=== PATIENT | male | born 1995 | race African-American/Black ===

== ENCOUNTER 2020-05-03 11:36 | Emergency (ER) | payer MEDICAID, SELFPAY ==
--- NOTE | 2020-05-03 11:42 | ED.GENADULT ---
HPI - General Adult General Chief complaint: Extremity Injury, Lower Stated complaint: R LEG PAIN Time Seen by Provider: 05/03/20 11:42 Source: patient Mode of arrival: ambulatory Limitations: no limitations History of Present Illness HPI narrative: 25-year-old male patient presents to the [facility] with complaints of right hip and right leg pain that radiates down to the foot causing some numbness to the foot. Patient states he started having the right leg pain about 2 to 3 weeks ago but denies any specific injury. Patient states he has been working out recently and has been running. Patient states about a week ago he went to the emergency department to be evaluated and states that they did x-ray him at that time and everything was negative. They prescribed him some naproxen and discharged him home. Patient states that the naproxen had been helping with his symptoms and his pain. Patient states he went running this past and the pain came back and the naproxen did not help. Patient states Monday the pain continued to go down the leg and now causing some numbness to the right foot at times. Patient states that the pain is worse when he is up walking around however it does get better when he is laying down or sitting. Denies any loss of bowel or bladder control. Patient states he is continue to take the naproxen. Patient states he has been doing some stretching but continues to workout. Patient denies any heat or warm baths. Related Data Home Medications Medication Instructions Recorded Confirmed naproxen 500 mg PO BID 05/03/20 05/03/20 Allergies Allergy/AdvReac Type Severity Reaction Status Date / Time No Known Allergies Allergy Verified 05/03/20 11:57 Review of Systems Review of Systems: Narrative: CONSTITUTIONAL: Denies fever, chills, or sweats. EYES: Denies visual changes, redness, or discharge. ENT: Denies rhinorrhea, congestion, sore throat, or otalgia. CARDIOVASCULAR: Denies chest pain, palpitations, or edema. RESPIRATORY: Denies cough or dyspnea. GASTROINTESTINAL: Denies abdominal pain, nausea, vomiting, or diarrhea. GENITOURINARY: Denies dysuria or hematuria. SKIN: Denies rash or itching. MUSCULOSKELETAL: Denies back pain, joint pain, or myalgia. Positive right hip and right leg pain NEUROLOGIC: Denies headache, numbness, or weakness. PSYCHIATRIC: Denies anxiety or depression. PMFSH Comments At the time of my signature I agree with nursing past medical history, surgical, social, and family history. There is no relevant family history pertinent to the presenting complaint. Exam Narrative: Exam Narrative: GENERAL: Well-appearing, well-nourished, and in no acute distress. HEAD: Normocephalic, atraumatic. EYES: PERRLA and EOMI. ENT: Nares clear, no rhinorrhea or epistaxis. Mucous membranes moist. NECK: Supple. No lymphadenopathy CHEST: Clear to auscultation. No respiratory distress. HEART: Regular rate and rhythm. No murmur heard. Normal peripheral pulses. ABDOMEN: Soft, nontender, nondistended, normal active bowel sounds. EXTREMITIES: Patient is able to ambulate to treatment area without difficulty or assistance, pain, or limp. No surface trauma, ecchymosis. no erythema, warmth. No deformity or crepitus or obvious asymmetry of the affected leg compared to the other. No tenderness to palpation over symphysis pubis, ischial bone,iliac crest, trochanter, SI notch, buttocks, quadriceps, femoral triangle, inguinal ligament. No inguinal lymphadenopathy. ROM unlimited and without pain. Normal flexion to chest, extension, abduction and adduction. Distal motor and neurovascular status are intact. BACK: Patient is able to ambulated without assistance. Pt is seated on the stretcher in no obvouis distress. No surface trauma noted. No muscle tenderness to Palpation. No spasm or mass. No step-offs or deformity noted to the cervical, thoracic or lumbar spine to firm Palpation at the midline. Patient does have pain that ra
[2020-05-03 11:50] VITALS: BP 145/86; PULSE 68; RESP 16; TEMP 36.4; O2SAT 100
== END 2020-05-03 12:30 | disposition home or self-care (01) ==
PROVIDERS: Emergency Provider Nurse Practitioner Family
DX: M54.41 Lumbago with sciatica, right side (principal)
CPT/HCPCS: 99213; G0463

== ENCOUNTER 2020-06-10 10:42 | Outpatient (CLI) | payer BC, SELFPAY ==
--- NOTE | ~2020-06-10 | XR_ITS ---
XR lumbar spine 2-3V DATE: 06/10/2020 11:07 INDICATION: Back pain, right leg radiculopathy TECHNIQUE: AP, lateral, coned lateral lumbosacral views COMPARISON: None FINDINGS: There is mild compensatory lumbar levoscoliosis. There is reversal of lumbar lordosis. There is mild to moderate degenerative disc disease at L5-S1. No fracture or bone destruction is evident. The lumbar pedicles are intact. The sacroiliac joints miles ear normal. IMPRESSION: Mild to moderate degenerative disc disease at L5-S1 Mild levoscoliosis and reversal of lumbar lordosis Reviewed, dictated and finalized at location B. [employer]
[2020-06-10 11:21] LABS: Basophils Absolute Auto 0.1 K/mm3 (0.0-0.1); Basophils Percent Auto 1.3 % (0.2-1.2); Eosinophils Absolute Auto 0.2 K/mm3 (0-0.3); Eosinophils Percent Auto 4.7 % (0-4.4); Hemoglobin 14.6 g/dL (14.0-18.0); Immature Granulocyte Absolute 0.01 K/mm3 (0.00-0.031); Immature Granulocyte Percent A 0.2 % (0-0.5); Immature Platelet Fraction Pct 3.8 % (0.9-11.2); Lymphocytes Absolute Auto 1.71 K/mm3 (0.9-3.2); Lymphocytes Percent Auto 36.9 % (18.3-44.2); Mean Corpuscular HGB Conc 33.2 g/dl (32-36); Mean Corpuscular Hemoglobin 29.4 pg (26-34); Mean Corpuscular Volume 88.7 fl (80-100); Mean Platelet Volume 10.1 fl (7.4-10.4); Monocytes Absolute Auto 0.7 K/mm3 (0.1-0.6); Monocytes Percent Auto 14.9 % (2.6-8.5); Platelet Count Result 351 k/mm3 (150-375); Red Blood Count 4.96 M/mm3 (4.6-6.20); Red Cell Distribution Width 14.9 % (11.5-14.5); White Blood Count 4.6 K/mm3 (4.5-10.0)
== END 2020-06-10 10:43 | disposition home or self-care (01) ==
PROVIDERS: PCP Emergency Medicine; Visit Provider Emergency Medicine
DX: R53.83 Other fatigue (principal); M54.9 Dorsalgia, unspecified; M51.37 Other intervertebral disc degeneration, lumbosacral region; M41.86 Other forms of scoliosis, lumbar region; M53.86 Other specified dorsopathies, lumbar region
CPT/HCPCS: 36415; 72100; 84443; 85025; 85055

== ENCOUNTER 2021-12-18 13:57 | Outpatient (CLI) | payer BC, SELFPAY ==
--- NOTE | ~2021-12-18 | MR_ITS ---
EXAMINATION: MR lumbar spine wo con DATE: 12/18/2021 15:00 INDICATION: Sciatica TECHNIQUE: Magnetic resonance imaging (MRI) of the lumbar spine was performed without intravenous con trast. Sequences included sagittal T2-weighted FSE, sagittal T2-weighted FS FSE, sagittal T1-weighted FSE, and axial T2-weighted FSE. COMPARISON: None FINDINGS: 3 mm retrolisthesis L3 on L4, 5 mm retrolisthesis L4 on L5 and sub-8 mm retrolisthesis L5 on S1. Stra ightening of the normal lumbar lordosis. Minimal likely physiologic anterior wedging at T12 and L1. R emainder vertebral body heights are normal. Diffuse relatively homogeneous decreased T1 marrow signal throughout the lumbar and lower thoracic spine and sacrum which remains slightly hyperintense to the adjacent discs and skeletal muscle. Disc desiccation and mild disc height loss at L3-L4 and with mod erate disc height loss at L4-L5 and L5-S1. There are annular fissures at each of these levels. Associ ated mild fibrovascular degenerative endplate changes at L5-S1. 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 The conus medullaris terminates at L1-L2. There is normal signal in the caudal spinal cord. Paravertebral soft tissues are unremarkable. The following d isc levels are specifically discussed: L1-L2: The disc does not extend beyond the endplate margin. There is mild bilateral facet joint osteo arthritis. There is no neural foraminal stenosis. There is no central canal stenosis. L2-L3: Disc is minimally bulging. There is mild right and moderate left facet joint osteoarthritis. T here is mild bilateral neural foraminal stenosis. There is mild central canal stenosis. L3-L4: Disc is bulging with superimposed annular fissure and central disc protrusion. There is modera te right and mild to moderate left facet joint osteoarthritis. There is mild to moderate bilateral ne ural foraminal stenosis. There is severe central canal stenosis. L4-5: Disc is bulging with annular fissure and central disc extrusion with disc material extending 3 mm caudal to the level of the superior endplate of L5. There is mild bilateral facet joint osteoarthr itis. There is moderate bilateral neural foraminal stenosis. There is severe central canal stenosis. L5-S1: Disc is bulging with superimposed annular fissure and right paracentral to left foraminal zone disc extrusion with disc material extending up to up to 7 mm caudal to the level of the superior end plate of S1. There is moderate left and mild to moderate right facet joint osteoarthritis. There is m oderate bilateral, left greater than right neural foraminal stenosis. There is mild central canal emy nosis. IMPRESSION: 1. Moderate lower lumbar predominant spondylosis with severe central canal stenosis at L3-L4 and L4-L 5. 2. Diffuse decreased marrow signal which remains slightly hyperintense to the discs and skeletal musc le which could be related to red marrow reexpansion such as in the setting of anemia. Differential wo uld include other myeloproliferative disorder such as myelofibrosis, leukemia/lymphoma or polycythemi a vera or iron deposition such as in the setting of hemachromatosis. Reviewed, dictated and finalized at location A. IMPRESSION: 1. Moderate lower lumbar predominant spondylosis with severe central canal sten osis at L3-L4 and L4-L5. 2. Diffuse decreased marrow signal which remains slightly hyperintense to the d iscs and skeletal muscle which could be related to red marrow reexpansion such as in the setting of anemia. Differential would include other myeloproliferativ e disorder such as myelofibrosis, leukemia/lymphoma or polycythemia vera or iro n deposition such as in the setting of hemachromatosis.
== END 2021-12-18 13:58 | disposition home or self-care (01) ==
PROVIDERS: PCP Emergency Medicine; Visit Provider Emergency Medicine
DX: M54.30 Sciatica, unspecified side (principal); M54.9 Dorsalgia, unspecified; M47.816 Spondylosis without myelopathy or radiculopathy, lumbar region; M48.061 Spinal stenosis, lumbar region without neurogenic claudication
CPT/HCPCS: 72148